=== PATIENT | male | born 1990 | race Caucasian/White ===

== ENCOUNTER 2021-04-24 18:56 | Inpatient (IN) | payer MEDICAID, SELFPAY ==
[2021-04-24 19:25] VITALS: BP 129/85; PULSE 107; RESP 18; TEMP 36.3; O2SAT 97; BMI 20.9
--- NOTE | 2021-04-24 19:34 | W.ED.PSYCHS ---
HPI - Psych General: Chief Complaint: Psychiatric Symptoms Stated Complaint: Psychiatric Symptoms Time Seen by Provider: 04/24/21 19:34 History of Present Illness: HPI Narrative: Mr Chacon is a 30-year-old gentleman with history of polysubstance abuse including alcohol and amphetamines and history of hospitalization for psychosis in [place] in perhaps 2013 who presents to the emergency department for mental health evaluation. He reports he has been off amphetamines and alcohol for 1 and half months and is currently involved in a [facility]. He is accompanied by 2 people within the program and gives permission to speak about medical things with them around. People around this organization have noticed that he has auditory and visual hallucinations. He is unsure if he has these or not but does endorse feeling more agitated at times and having trouble keeping his mood under control. Denies SI or HI. He reports previously being on Zyprexa and Invega with improvement in symptoms. Substance abuse goes back to his teenage years and it is unclear whether there have been periods of continued symptoms during periods of sobriety as this is the longest time that he has been sober in a long time. Denies otherwise medical complaints other than feeling cold and having congestion. No other specific changes in health, exacerbating, relieving factors identified. Review of Systems General: Reports: 10 or more systems reviewed and unremarkable except in HPI and below PFS ED PFSH: Medical History Psychiatric care Physical Exam Narrative: EXAM NARRATIVE: GENERAL/CONSTITUTIONAL - well-appearing. Anxious Eyes - PERRL, no conjunctival injection ENMT - Atraumatic external nose and ears. NECK - supple. trachea midline CARDIOVASCULAR - regular rate and rhythm. RESPIRATORY -clear to auscultation bilaterally. ABDOMEN/GI - Nontender/Nondistended. MSK - Extremities without obvious deformity or tenderness to palpation SKIN - Warm, Dry NEURO - alert and appropriately oriented. Moves all extremities equally. PSYCH -anxious, withdrawn, poor eye contact Course ED course: - Patient was seen and evaluated by me at bedside -Vital signs obtained - Initial evaluation notable for anxious, depressed affect - Labs notable for no acute hematologic or metabolic abnormality to explain patient's symptoms. Toxic ingestion screen negative. -Based on ED evaluation at this point there is no obvious condition that would preclude the patient from inpatient management of psychiatric concerns. -Psychiatry service contacted and agreed to admit the patient. Vital Signs: Vital signs: Vital Signs Temperature 98.3 F 04/27/21 11:33 Pulse Rate 75 04/27/21 11:33 Respiratory Rate 18 04/27/21 11:33 Blood Pressure 111/66 04/27/21 11:33 Pulse Oximetry 100 04/27/21 11:33 MDM - Psych Medical Records: Attestation: I reviewed the patient's medical records. Lab Data: Attestation: I reviewed the patient's lab results. Labs: Lab Results 04/24/21 04/24/21 04/24/21 19:48 19:48 20:00 WBC 7.7 10^3/uL 10^3/ uL (4.0-10.0) RBC 4.53 10^6/uL 10^6 /uL (4.1-5.3) Hgb 13.0 g/dL g/dL (11.7-16.6) Hct 40.0 % L % (42.0-52.0) MCV 88.3 fl fl (80-94) MCH 28.7 pg pg (28.0-34.0) MCHC 32.5 g/dL g/dL (30.0-36.0) RDW 12.6 % % (12.1-15.1) Plt Count 341 10^3/cmm 10^3 /cmm (130-400) MPV 9.4 fL fL (7.4-10.4) Neut % (Auto) 62.8 % % Lymph % (Auto) 30.3 % % [place] % (Auto) 5.6 % % Eos % (Auto) 0.6 % % Baso % (Auto) 0.4 % % Neut # (Auto) 4.85 10^3/uL 10^3 /uL (1.8-7.7) Lymph # (Auto) 2.3 10^3/uL 10^3/ uL (0.8-4.8) [place] # (Auto) 0.4 10^3/uL 10^3/ uL (0.2-0.9) Eos # (Auto) 0.1 10^3/uL 10^3/ uL (0.0-0.8) Baso # (Auto) 0.0 10^3/uL 10^3/ uL (0.0-0.1) Nucleated RBC % (a uto) 0 % % Nucleated RBCs # 0.0 /100WBC /100W BC Sodium 141 mmol/L mmol/L (136-145) Potassium 4.2 mmol/L mmol/L (3.5-5.1) Chloride 103 mmol/L mmol/L (98-107) Carbon Dioxide 23 mmol/L mmol/L (22-29) Anion Gap 19.2 H (5-19) BUN 18 mg/dL mg/dL (6-20) Creatinine 0.8 mg/dL mg/dL (0.7-1.2) GFR Calculation 113.5 mL/min mL/m in (90-130) Glucose 97 mg/dL mg/dL (65-115) Calculated Osmolal ity 294 mOsm/kg mOsm/ kg (285-295) Calcium 8.9 mg/dL mg/dL (8.5-10.5) Total Bilirubin 0.2 mg/dL mg/dL (0.15-1.2) AST 15 U/L U/L (0-40) ALT 11 U/L U/L (0-41) Alkaline Phosphata se 98 IU/L IU/L (40-130) Total Protein 6.8 g/dL g/dL (6.6-8.7) Albumin 4.6 g/dL g/dL (3.5-5.2) Globulin 2.2 g/dL g/dL (1.3-4.6) TSH 1.34 uIU/mL uIU/m L (0.27-4.20) Salicylates < 0.3 mg/dL L mg/ dL (3-10) Urine Opiates Scre en Negative ng/mL ng /mL (Negative) Acetaminophen < 5.0 ug/mL L ug/ mL (10-30) Ur Barbiturates Sc reen Negative ng/mL ng /mL (Negative) Ur Phencyclidine S crn Negative ng/mL ng /mL (Negative) Ur Amphetamines Sc reen Negative ng/mL ng /mL (Negative) U Benzodiazepines Scrn Negative ng/mL ng /mL (Negative) Urine Cocaine Scre en Negative ng/mL ng /mL (Negative) U Marijuana (THC) Screen Negative ng/mL ng /mL (Negative) Ethyl Alcohol < 10 mg/dL mg/dL (0-10) Discharge Plan Discharge Patient Disposition: Admitted As Inpatient Admit Provider: Willie Singh Clinical Impression: Hallucinations, Mood disorder Condition: Stable Discharge Diet: Regular Discharge Activity: Resume usual activity Coding Level of Care Code ED [employer] 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
[2021-04-24 20:08] LABS: Basophils % 0.4 %; Eosinophils # 0.1 10^3/uL (0.0-0.8); Eosinophils % 0.6 %; Lymphocytes # 2.3 10^3/uL (0.8-4.8); Lymphocytes % 30.3 %; Mean Corpuscular HGB Conc 32.5 g/dL (30.0-36.0); Mean Corpuscular Hemoglobin 28.7 pg (28.0-34.0); Mean Corpuscular Volume 88.3 fl (80-94); Mean Platelet Volume 9.4 fL (7.4-10.4); Monocytes # 0.4 10^3/uL (0.2-0.9); Monocytes % 5.6 %; Neutrophils # 4.85 10^3/uL (1.8-7.7); Neutrophils % 62.8 %; Nucleated Red Blood Cells % 0 %; Platelet Count 341 10^3/cmm (130-400); Red Blood Count 4.53 10^6/uL (4.1-5.3); Red Cell Distribution Width 12.6 % (12.1-15.1); White Blood Count 7.7 10^3/uL (4.0-10.0)
[2021-04-24 20:09] VITALS: BP 129/85; PULSE 107; RESP 18; TEMP 36.3; O2SAT 97
[2021-04-24 20:27] LABS: Amphetamines Screen Urine Negative (Negative); Barbiturates Screen Urine Negative (Negative); Benzodiazepines Screen Urine Negative (Negative); Cocaine Screen Urine Negative (Negative); Opiate Screen Urine Negative (Negative); PCP Screen Urine Negative (Negative); THC Screen Urine Negative (Negative)
[2021-04-24 20:38] LABS: Alanine Aminotransferase 11 U/L (0-41); Albumin Level 4.6 g/dL (3.5-5.2); Alkaline Phosphatase 98 IU/L (40-130); Anion Gap 19.2 (5-19); Aspartate Amino Transferase 15 U/L (0-40); Blood Urea Nitrogen 18 mg/dL (6-20); Calcium 8.9 mg/dL (8.5-10.5); Carbon Dioxide 23 mmol/L (22-29); Chloride 103 mmol/L (98-107); Globulin 2.2 g/dL (1.3-4.6); Glomerular Filtration Rate 113.5 mL/min (90-130); Glucose 97 mg/dL (65-115); Osmolality Calculated 294 mOsm/kg (285-295); Potassium 4.2 mmol/L (3.5-5.1); Sodium 141 mmol/L (136-145); Thyroid Stimulating Hormone 1.34 uIU/mL (0.27-4.20); Total Bilirubin 0.2 mg/dL (0.15-1.2); Total Protein 6.8 g/dL (6.6-8.7)
[2021-04-24 20:39] LABS: Acetaminophen < 5.0 ug/mL (10-30); Alcohol Level < 10 mg/dL (0-10); Salicylate < 0.3 mg/dL (3-10)
[2021-04-24 23:38] VITALS: BP 140/87; PULSE 110; RESP 19; TEMP 37.1; O2SAT 99
[2021-04-25 06:00] VITALS: RESP 17; BMI 20.9
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
[2021-04-25 14:00] VITALS: BP 99/58; PULSE 69; RESP 18; TEMP 36.6; O2SAT 97
[2021-04-25 20:38] VITALS: BP 120/65; PULSE 73; RESP 18; TEMP 36.6; O2SAT 98
[2021-04-25] MEDS: OLANZapine 5 mg TABLET PO (21:16)
[2021-04-26 06:00] VITALS: RESP 17
--- NOTE | 2021-04-26 12:56 | NPU.GN ---
[facility] Group Topic:Safia Rios / Discussion General Mood of Group: Jaya did not attend or participate in group today.
[2021-04-26 14:00] VITALS: BP 108/70; PULSE 91; RESP 17; TEMP 37; O2SAT 97
--- NOTE | 2021-04-26 14:27 | P.NPUPN_ITS ---
Subjective NPU Subjective: Interval history: Patient presents here reporting that he feels better and less irritable. He is optimistic that he can return to his [place]- based sober living program meeting tomorrow. He feels that the medication will be sufficient to allow him to continue to improve. We discussed that I thought he might need a little more time but that as long as he continues to take the medication he should have continued improvement. Mental Status Exam MSE Comments: This is a slender white male in hospital scrubs with adequate grooming and eye contact. No abnormal movements except for mild psychomotor retardation. Cooperative with exam in mild distress. Speech was decreased rate and volume. Mood described as fine, affect less anxious and vigilant. Thought process organized. Thought content: Patient denied suicidal or homicidal ideation, there were no delusions reported but he seemed quite paranoid, he denied overt delusional. Attention and concentration were intact and memory was mostly unreliable but none were formally tested. He is alert and oriented times. Insight and judgment are limited, impulse control is limited. Vitals/I&O/Wt Last Vital Signs Temp 98.6 F 04/26/21 14:00 Pulse 91 04/26/21 14:00 Resp 17 04/26/21 14:00 BP 108/70 04/26/21 14:00 Pulse Ox 97 04/26/21 14:00 Data NPU : 04/24/21 19:48 04/24/21 19:48 A&P Additional A&P Information (1) Hallucinations: (2) Mood disorder: (3) Paranoia (psychosis): Additional A&P Information This is a 30-year-old white male with a long history of mental health and addiction issues with history of psychosis who presents in a drug and alcohol recovery program at least 6 weeks away from his last use reportedly if not longer who presents reporting a desire to possibly start medications but not endorsing residual psychotic symptoms, but appearing to have psychotic symptoms. 1. Continue current medication. Started Zyprexa 5 mg p.o. nightly. 2. Continue every 15 minute checks for safety. 3. Encourage individual, group and milieu therapies. 4. Plan for return to his current sober living treatment facility after discharge. Attestations NPU Medical Necessity Statement*: Inpatient hospitalization is medically necessary and the clinically appropriate intervention at this time. We will monitor medication to make changes as indicated. Likely length of stay 1-3 days. Coding Level of Care Code Acute Executive Community Planning for Rita Russo
[2021-04-26] MEDS: OLANZapine 5 mg TABLET PO (21:30)
[2021-04-26 21:35] VITALS: RESP 19
[2021-04-27 06:21] VITALS: BP 111/66; PULSE 75; RESP 18; TEMP 36.8; O2SAT 100
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
[2021-04-27 11:33] VITALS: BP 111/66; PULSE 75; RESP 18; TEMP 36.8; O2SAT 100
--- NOTE | 2021-04-27 13:16 | NPU.GN ---
[facility] Unit Group Topic: Safia Rios General Mood of Group: Jaya did not attend group today.
== END 2021-04-27 13:16 | disposition home or self-care (01) | DRG 885 ==
LOC: ER 20:45 → NP 21:51
PROVIDERS: Admitting Provider Psychiatry & Neurology Psychiatry; Emergency Provider Emergency Medicine; Visit Provider Psychiatry & Neurology Psychiatry
DX: F39 Unspecified mood [affective] disorder (principal); F22 Delusional disorders; F17.210 Nicotine dependence, cigarettes, uncomplicated; Z86.59 Personal history of other mental and behavioral disorders
CPT/HCPCS: 80053; 80306; 80307; 84443; 85025; 97165; 99285